=== PATIENT | female | born 1990 | race Caucasian/White ===

== ENCOUNTER 2018-12-19 13:46 | Inpatient (IN) | payer OTHER ==
[2018-12-19] MEDS ORDERED: LIDOCAINE 5% TOPICAL PATCH TP ONE (14:58)
[2018-12-19] MEDS ORDERED: METHOCARBAMOL 500 MG TABLET PO ONE (14:58)
--- NOTE | 2018-12-19 14:58 | PDOC ---
History of Present Illness - General Chief Complaint: Pain Stated Complaint: LOWER BACK PAIN RADIATE DOWN RT LEG Time Seen by Provider: 12/19/18 14:38 History Source: Patient Exam Limitations: No Limitations - History of Present Illness Initial Comments: 12/19/18 14:52 28yo F with PMH of slipped disc presenting to ED with back pain radiating down to R leg x3w. Patient has a history of slipped disc but did not have pain until 3 weeks ago. Patient does not recall any injury. The pain radiates from the buttock down the R leg, worsened when sitting and walking, better when laying down. Pain feels like an electric like pain with numbness when she sits. She states that she cannot use the bathroom due to the pain from sitting. She endorses numbness in the buttocks but not down the leg. Denies urinary retention , bowel/bladder incontinence, weakness, abdominal pain, n/v/d, headaches. LMP 2w ago. She went to [facility] 12/08 for the pain, was given a steroid shot which helped and a prescription for oxycodone? but she did not like the side effects and stopped taking it. PMD: Mounika PMH: none PSH: none Meds: none Allergies: nkda Past History - Past Medical History Allergies/Adverse Reactions: Allergies Allergy/AdvReac Type Severity Reaction Status Date / Time No Known Allergies Allergy Verified 12/19/18 13:52 Home Medications: Ambulatory Orders Ibuprofen [Ibu] 800 mg PO BID #20 tablet 12/19/18 Levothyroxine [Synthroid -] 50 mcg PO DAILY 12/19/18 Methocarbamol [Robaxin -] 750 mg PO Q8H #21 tablet 12/19/18 Asthma: Yes Cancer: No Cardiac Disorders: No COPD: No Diabetes: No HTN: No Seizures: No Thyroid Disease: No Other medical history: bulging discs - Suicide/Smoking/Psychosocial Hx Smoking Status: No Smoking History: Never smoked Have you smoked in the past 12 months: No Number of Cigarettes Smoked Daily: 0 Hx Alcohol Use: No Drug/Substance Use Hx: No Hx Substance Use Treatment: No Review of Systems - Review of Systems Constitutional: No: Chills, Fever, Weakness HEENTM: No: Symptoms Reported Respiratory: No: Symptoms reported Cardiac (ROS): No: Symptoms Reported ABD/GI: No: Symptoms Reported : No: Burning, Dysuria, Pain Musculoskeletal: Yes: See HPI, Back Pain. No: Muscle Pain, Muscle Weakness Integumentary: No: Symptoms Reported Neurological: Yes: See HPI, Numbness. No: Headache, Tingling, Weakness *Physical Exam - Vital Signs Last Vital Signs Temp Pulse Resp BP Pulse Ox 98 F 127 H 18 156/109 H 99 12/19/18 13:48 12/19/18 13:48 12/19/18 13:48 12/19/18 13:48 12/19/18 13:48 - Physical Exam General Appearance: Yes: Appropriately Dressed, Moderate Distress, Obese HEENT: positive: EOMI, STEFFI Neck: positive: Trachea midline, Supple Respiratory/Chest: positive: Lungs Clear, Normal Breath Sounds Cardiovascular: positive: Regular Rhythm, Regular Rate, S1, S2. negative: Edema , JVD, Murmur Vascular Pulses: Dorsalis-Pedis (R): 2+, Doralis-Pedis (L): 2+ Gastrointestinal/Abdominal: positive: Normal Bowel Sounds, Soft. negative: Tender, Guarding, Rebound, Tenderness Musculoskeletal: positive: Other (+SLR with R and L leg with pain felt in R buttock). negative: CVA Tenderness, Vertebral Tenderness Extremity: positive: Normal Capillary Refill, Pelvis Stable. negative: Pedal Edema, Swelling Integumentary: positive: Normal Color, Dry, Warm Neurologic: positive: internal revenue agent II-XII NML intact, Fully Oriented, Alert, Normal Mood/ Affect, Normal Response, Motor Strength 5/5, Numbness (R perineum/gluteal fold) ED Treatment Course - LABORATORY CBC & Chemistry Diagram: 12/19/18 17:30 12/19/18 17:30 Medical Decision Making - Medical Decision Making 12/19/18 15:11 28yo F with PMH of slipped disc presenting to ED with back pain radiating down to R leg x3w. Patient has a history of slipped disc but did not have pain until 3 weeks ago. Patient does not recall any injury. The pain radiates from the buttock down the R leg, worsened when sitting and walking, better when laying down. Pain feels like an electric like pain with numbness when she sits. She states that she cannot use the bathroom due to the pain from sitting. Denies urinary retention, bowel/bladder incontinence, weakness, abdominal pain, n/v/d, headaches. LMP 2w ago. She went to [facility] 12/08 for the pain, was given a steroid shot which helped and a prescription for oxycodone? but she did not like the side effects and stopped taking it. Vitals: tachycardic, hypertensive PE: positive R and L SLR. strength 5/5. no midline spinal tenderness. no abdominal tenderness. decreased sensation R perineum Likely has sciatica from slipped disc. Triage note states difficulty with urination however patient states that she has no problem with urinating, it is just painful for her to sit down. Concern for cauda equina or cord compression with R sided perineal numbness. will order MRI will order UA, Upt. Lidoderm patch, robaxin 1g. toradol once is negative. XR lumbar spine to r/o fractures. 12/19/18 15:37 UA positive for infection. Will treat with Keflex. negative test, will order 60mg IM toradol. POCUS post void: <100mL performed by Dr. Beckham. 12/19/18 19:35 Xray L spine: no fractures or bony deformities MRI: large central and bilateral disc herniation with disc extrusion at L5-S1 with marked mass effect on the sac. Dr. Nihcols consulted and saw patient. Recommended admission for surgery due to patient having progressively worsening symptoms. admission labs, ekg and cxr ordered. 12/19/18 20:05 ekg: nsr with pvc at 90bpm. qrs 84, pr 126, qtc 496. labs pending. accepted by hospitalist. *DC/Admit/Observation/Transfer Diagnosis at time of Disposition: Herniated lumbar intervertebral disc Sciatica Qualifiers: Laterality: right Qualified Code(s): M54.31 - Sciatica, right side - Discharge Dispostion Condition at time of disposition: Good Decision to Admit order: Yes - Prescriptions Prescriptions: Ibuprofen [Ibu] 800 mg PO BID #20 tablet Methocarbamol [Robaxin -] 750 mg PO Q8H #21 tablet - Referrals Referrals: Lilia Ribera MD [Primary Care Provider] - Felice Nichols MD, FAANS [Staff Physician] - - Patient Instructions - Post Discharge Activity
[2018-12-19] MEDS ORDERED: LIDOCAINE 5% TOPICAL PATCH ONE (15:04)
[2018-12-19] MEDS ORDERED: METHOCARBAMOL 500 MG TABLET ONE (15:04)
[2018-12-19 15:27] LABS: EPI CELLS 21.2 /HPF (0-5/HPF); HYALINE CASTS 75 /lpf (0-8); PH,URINE 5.5 (5.0-8.0); URINE APPEARANCE TURBID; URINE BACTERIA 3003.9 /hpf (NEGATIVE); URINE BILIRUBIN NEGATIVE (NEGATIVE); URINE COLOR YELLOW; URINE GLUCOSE (UA) NEGATIVE (NEGATIVE); URINE KETONE TRACE (NEGATIVE); URINE LEUK ESTERASE 2+ (NEGATIVE); URINE NITRITE NEGATIVE (NEGATIVE); URINE PROTEIN NEGATIVE (NEGATIVE); URINE UROBILINOGEN 0.2 mg/dL (0.2-1.0); URINE WBC 133 /hpf (0-5)
--- NOTE | 2018-12-19 15:28 | PDOC ---
Documentation entered by Zully Paredes SCRIBE, acting as scribe for Catrachita Becerril DO. Catrachita Becerril DO: This documentation has been prepared by the Reggie guardado Sammi, SCRIBE, under my direction and personally reviewed by me in its entirety. I confirm that the documentation accurately reflects all work, treatment, procedures, and medical decision making performed by me. Attending Attestation - Resident Resident Name: LuarenSolange - ED Attending Attestation I have performed the following: I have examined & evaluated the patient, The case was reviewed & discussed with the resident, I agree w/resident's findings & plan, Exceptions are as noted - HPI HPI: 12/19/18 15:19 The patient is a 28 year old female, with a significant PMH pf a slipped disc, who presents to the emergency department for evaluation of 3 weeks of back pain with radiation down right lower extremity. Denies injury or trauma. She reports the pain is exacerbated when flexed at the hips. She also notes numbness to the right buttox. The patient denies chest pain, shortness of breath, headache and dizziness. Denies fever, chills, nausea, vomiting, diarrhea and constipation. Denies dysuria, frequency, urgency and hematuria. - Physicial Exam PE: 12/19/18 15:20 GENERAL: Awake, alert, and fully oriented, in no acute distress NECK: Normal ROM, supple, no lymphadenopathy, JVD, or masses LUNGS: Breath sounds equal, clear to auscultation bilaterally. No wheezes, and no crackles HEART: (+)tachycardic. normal S1 and S2, no murmurs, rubs or gallops BACK: No midline C/T/L spine tenderness. ABDOMEN: Soft, nontender, normoactive bowel sounds. No guarding, no rebound. No masses EXTREMITIES: (+)right peroneum loss of sensation. Normal range of motion, no edema. No clubbing or cyanosis. No cords, erythema, or tenderness NEUROLOGICAL: Cranial nerves II through XII grossly intact. Normal speech, normal gait SKIN: Warm, Dry, normal turgor, no rashes or lesions noted. - Medical Decision Making 12/19/18 15:27 I, Dr. Catrachita Kurkowski, DO, attest that this document has been prepared under my direction and personally reviewed by me in its entirety. I further attest, that it accurately reflects all work, treatment, procedures and medical decision -making performed by me. 12/19/18 15:27 a/p: 28yo female with worsening lbp with radiation down the R leg -pain with sitting on the toilet so having difficulty with urination -no loss of control of bowel or bladder -no midline low back ttp, but saddle paresthesias -no weakness in leg or paresthesias in leg -given new saddle paresthesias will need MRI lumbar spine -will send ua and ucg -will medicate for pain -discussed plan with the patient -will perform post void bladder scan 12/19/18 15:29 pt with uti, will treat with abx 12/19/18 15:35 post void on ultrasound was 35cc 12/19/18 16:25 xray back neg pending MRI 12/19/18 16:42 pt signed out to the oncoming ED physician pending MRI
[2018-12-19] MEDS ORDERED: CEPHALEXIN MONOHYDRATE 500 MG CAPSULE (UD) PO ONE (15:29)
[2018-12-19] MEDS ORDERED: KETOROLAC TROMETHAMINE 60 MG/2 ML VIAL IM ONE (15:30)
[2018-12-19] MEDS ORDERED: CEPHALEXIN MONOHYDRATE 500 MG CAPSULE (UD) ONE (16:17)
[2018-12-19] MEDS ORDERED: KETOROLAC TROMETHAMINE 30 MG/1 ML VIAL ONE (16:20)
[2018-12-19] MEDS ORDERED: KETOROLAC TROMETHAMINE 30 MG/1 ML VIAL IM ONE (16:30)
[2018-12-19] MEDS ORDERED: DEXAMETHASONE 4 MG TABLET (FP) PO ONE (16:37)
[2018-12-19] MEDS ORDERED: DEXAMETHASONE SOD PHOSPHATE 10 MG/1 ML VIAL ONE (16:45)
[2018-12-19 19:41] LABS: BASO % 0.5 % (0-2.0); EOS % 0.4 % (0-4.5); HEMOGLOBIN 14.5 GM/dL (10.7-15.3); LYMPH % 14.9 % (8-40); MCH 29.5 pg (25.7-33.7); MCHC 33.8 g/dl (32.0-36.0); MEAN CELL VOLUME 87.3 fl (80-96); MEAN PLT VOLUME 8.5 fl (7.5-11.1); MONO % 2.4 % (3.8-10.2); NEUT % 81.8 % (42.8-82.8); PLATELET COUNT 294 K/MM3 (134-434); RBC 4.93 M/mm3 (3.60-5.2); RDW 13.5 % (11.6-15.6); WHITE BLOOD COUNT 10.4 K/mm3 (4.0-10.0)
[2018-12-19 20:03] LABS: INR 1.18 (0.83-1.09)
[2018-12-19 20:07] LABS: ALBUMIN 4.8 g/dl (3.4-5.0); BLOOD UREA NITROGEN 10.2 mg/dL (7-18); CREATININE 0.9 mg/dL (0.55-1.3); POTASSIUM 4.2 mmol/L (3.5-5.1); TOT PROT 8.6 g/dl (6.4-8.2)
--- NOTE | 2018-12-19 20:35 | HP ---
CHIEF COMPLAINT: Back Pain PCP: Jerod HISTORY OF PRESENT ILLNESS: 28yo F with PMHx of Hypothryroidism (diagnosed in November) Borderline Personality Disorder, and a slipped disc presenting to ED with back pain radiating down to R leg x3w. Patient has a history of slipped disc but did not have pain until 3 weeks ago. Patient does not recall any injury. The pain radiates from the buttock down the R leg, worsened when sitting and walking, better when laying down. Pain feels like an electric like pain with numbness when she sits. She states that she cannot use the bathroom due to the pain from sitting. She endorses numbness in the buttocks but not down the leg. Denies urinary retention, bowel/bladder incontinence, weakness, abdominal pain, n/v/d, headaches. LMP 2w ago. She went to [facility] for the pain, was given a steroid shot which helped and a prescription for oxycodone? but she did not like the side effects and flushed it down the toilet. ER course was notable for: (1) Toradol 60mg IM (2) Lidoderm Patch (3) Keflex 500mg-UTI (4) Robaxin 1000mg PO (5) Decadron 10mg PO (6) MRI Spine-Large central and bilateral disc herniation with disc extrusion at L5-S1 with marked mass effect on the sac and just to suggest reaches the S1 roots. (7) Neurosurgery Consult-Dr. Nichols saw patient and recommended Surgery Recent Travel: Denies PAST MEDICAL HISTORY: Hypothyroidism, Borderline Personality Disorder PAST SURGICAL HISTORY: Denies Social History: Smoking: Smoked when she was a teenager for a short time. 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 Family History: Mother: HTN, AFIB Great Aunts: Thyroid Issues Father-GERD Grandfather: Prostate Cancer, DM Grandmother: Breast Cancer Allergies: No Known Allergies Allergy (Verified 12/19/18 13:52) HOME MEDICATIONS: Home Medications Medication Instructions Recorded Ibuprofen [Ibu] 800 mg PO BID #20 tablet 12/19/18 Levothyroxine [Synthroid -] 50 mcg PO DAILY 12/19/18 Methocarbamol [Robaxin -] 750 mg PO Q8H #21 tablet 12/19/18 REVIEW OF SYSTEMS Constitutional: No: Chills, Fever, Weakness HEENTM: No: Symptoms Reported Respiratory: No: Symptoms reported Cardiac (ROS): No: Symptoms Reported ABD/GI: No: Symptoms Reported : No: Burning, Dysuria, Pain Musculoskeletal: Yes: See HPI, Back Pain. No: Muscle Pain, Muscle Weakness Integumentary: No: Symptoms Reported Neurological: Yes: See HPI, Numbness. No: Headache, Tingling, Weakness PHYSICAL EXAMINATION General Appearance: Yes: Appropriately Dressed, Moderate Distress, Obese HEENT: positive: EOMI, STEFFI Neck: positive: Trachea midline, Supple Respiratory/Chest: positive: Lungs Clear, Normal Breath Sounds Cardiovascular: positive: Regular Rhythm, Regular Rate, S1, S2. negative: Edema , JVD, Murmur Vascular Pulses: Dorsalis-Pedis (R): 2+, Doralis-Pedis (L): 2+ Gastrointestinal/Abdominal: positive: Normal Bowel Sounds, Soft. negative: Tender, Guarding, Rebound, Tenderness Musculoskeletal: positive: Other (+SLR with R and L leg with pain felt in R buttock). negative: CVA Tenderness, Vertebral Tenderness Extremity: positive: Normal Capillary Refill, Pelvis Stable. negative: Pedal Edema, Swelling Integumentary: positive: Normal Color, Dry, Warm Neurologic: positive: exchange consultant II-XII NML intact, Fully Oriented, Alert, Normal Mood/ Affect, Normal Response, Motor Strength 5/5, Numbness (R perineum/gluteal fold) Vital Signs - 24 hr 12/19/18 13:48 Temperature 98 F Pulse Rate 127 H Respiratory 18 Rate Blood Pressure 156/109 H O2 Sat by Pulse 99 Oximetry (%) Laboratory Results - last 24 hr 12/19/18 12/19/18 12/19/18 13:00 15:15 17:30 WBC RBC Hgb Hct MCV MCH MCHC RDW Plt Count MPV Absolute Neuts (auto) Neutrophils % Lymphocytes % Monocytes % Eosinophils % Basophils % Nucleated RBC % PT with INR INR PTT (Actin FS) 37.9 H Sodium Potassium Chloride Carbon Dioxide Anion Gap BUN Creatinine Est GFR (CKD-EPI)AfAm Est GFR (CKD-EPI)NonAf Random Glucose Calcium Total Bilirubin AST ALT Alkaline Phosphatase Total Protein Albumin Urine Color Yellow Urine Appearance Turbid Urine pH 5.5 Ur Specific [place] 1.023 Urine Protein Negative Urine Glucose (UA) Negative Urine Ketones Trace H Urine Blood Negative Urine Nitrite Negative Urine Bilirubin Negative Urine Urobilinogen 0.2 Ur Leukocyte Esterase 2+ H Urine WBC (Auto) 133 Urine Casts (Auto) 75 U Epithel Cells (Auto) 21.2 Urine Bacteria (Auto) 3003.9 Urine HCG, Qual Negative 12/19/18 12/19/18 12/19/18 17:30 17:30 17:30 WBC 10.4 H RBC 4.93 Hgb 14.5 Hct 43.0 MCV 87.3 MCH 29.5 MCHC 33.8 RDW 13.5 Plt Count 294 MPV 8.5 Absolute Neuts (auto) 8.5 H Neutrophils % 81.8 D Lymphocytes % 14.9 D Monocytes % 2.4 L Eosinophils % 0.4 Basophils % 0.5 Nucleated RBC % 0 PT with INR 14.00 H INR 1.18 H PTT (Actin FS) Sodium 138 Potassium 4.2 Chloride 105 Carbon Dioxide 26 Anion Gap 6 L BUN 10.2 Creatinine 0.9 Est GFR (CKD-EPI)AfAm 99.44 Est GFR (CKD-EPI)NonAf 85.80 Random Glucose 99 Calcium 10.0 Total Bilirubin 1.0 AST 34 ALT 49 Alkaline Phosphatase 100 Total Protein 8.6 H Albumin 4.8 Urine Color Urine Appearance Urine pH Ur Specific [place] Urine Protein Urine Glucose (UA) Urine Ketones Urine Blood Urine Nitrite Urine Bilirubin Urine Urobilinogen Ur Leukocyte Esterase Urine WBC (Auto) Urine Casts (Auto) U Epithel Cells (Auto) Urine Bacteria (Auto) Urine HCG, Qual ASSESSMENT/PLAN: 28yo F with PMHx of Hypothryroidism, Borderline Personality Disorder, and a slipped disc. Admitted for back pain, and positive UA. Bilateral Disc herniation with disc extrusion at L5-S1 -Large central and bilateral disc herniation with disc extrusion at L5-S1 with marked mass effect on the sac and just to suggest reaches the S1 roots. -The pain radiates from the buttock down the R leg, worsened when sitting and walking, better when laying down. Pain feels like an electric like pain with numbness when she sits -Neurosurgery Consulted- Dr. Nichols -Pain Meds - Ibuprofen 800mg PO Q8H PRN, - Robaxin 500mg PO Q8H Uncomplicated UTI -UA- Positive Leuk -WBC 10.4 -Urine Culture, taken after ABX given in ER -Keflex 500mg BID for 3 days (first dose given in the ER) Hypothyroidism -Continue Hm dose of Synthroid-50mg PO AM Borderline Personality Disorder -Does not take any medication FEN -PO intake adequate -Replenish PRN -Regular Diet Prophylaxis -DVT -OOB as tolerated -Bilateral SCDs Dispo -Inpatient -Full Code Visit type - Emergency Visit Emergency Visit: Yes ED Registration Date: 12/19/18 Care time: The patient presented to the Emergency Department on the above date and was hospitalized for further evaluation of their emergent condition. - New Patient This patient is new to me today: Yes Date on this admission: 12/20/18 - Critical Care Critical Care patient: No
[2018-12-19] MEDS ORDERED: ACETAMINOPHEN 325 MG TABLET (FP) PO PRN (21:04)
[2018-12-19] MEDS ORDERED: LIDOCAINE PATCH REMOVAL MC SCH (22:00)
[2018-12-19] MEDS: METHOCARBAMOL 500 MG TABLET PO SCH (22:16)
[2018-12-20 03:46] LABS: URINE RBC 6 /hpf (0-4)
[2018-12-20 03:47] LABS: URINE CRYSTALS CA OXALATE /hpf
[2018-12-20] MEDS: LEVOTHYROXINE NA 50 MCG TABLET (FP) PO SCH (06:08)
[2018-12-20] MEDS: METHOCARBAMOL 500 MG TABLET PO SCH ×3 (06:08→22:16)
[2018-12-20 07:15] LABS: HEMATOCRIT 39.4 % (32.4-45.2); HEMOGLOBIN 13.6 GM/dL (10.7-15.3); MCH 30.1 pg (25.7-33.7); MCHC 34.5 g/dl (32.0-36.0); MEAN CELL VOLUME 87.1 fl (80-96); MEAN PLT VOLUME 8.4 fl (7.5-11.1); PLATELET COUNT 299 K/MM3 (134-434); RBC 4.53 M/mm3 (3.60-5.2); RDW 13.4 % (11.6-15.6)
[2018-12-20 07:50] LABS: ALBUMIN 4.3 g/dl (3.4-5.0); BLOOD UREA NITROGEN 11.6 mg/dL (7-18); CALCIUM 9.8 mg/dL (8.5-10.1); CREATININE 0.9 mg/dL (0.55-1.3); MAGNESIUM 2.1 mg/dL (1.8-2.4); TOT PROT 8.1 g/dl (6.4-8.2)
[2018-12-20] MEDS: IBUPROFEN 400 MG TABLET (FP) PO PRN (09:21)
[2018-12-20] MEDS: CEPHALEXIN MONOHYDRATE 500 MG CAPSULE (UD) PO SCH ×2 (09:21→22:17)
--- NOTE | 2018-12-20 14:20 | EKG ---
Test Reason : Blood Pressure : / mmHG Vent. Rate : 090 BPM Atrial Rate : 090 BPM P-R Int : 126 ms QRS Dur : 084 ms QT Int : 406 ms P-R-T Axes : 047 040 020 degrees QTc Int : 496 ms SINUS RHYTHM WITH OCCASIONAL PREMATURE VENTRICULAR COMPLEXES AND PREMATURE ATRIAL COMPLEXES NONSPECIFIC T WAVE ABNORMALITY ABNORMAL ECG NO PREVIOUS ECGS AVAILABLE Confirmed by MD Jaxson, Judd ([id number]) on 12/20/2018 2:20:03 PM Referred By: Confirmed By:Judd Puri MD
--- NOTE | 2018-12-20 19:06 | CONSULT ---
Consult - text type - Consultation Consultation Note: NEUROSURGERY CONSULTATION Tonie Valenzuela is a 28year old Latin female who has achief complaint of acute exacerbation of chronic back pain who presented to the [facility] ER for evaluation on Wednesday, December 19, 2018. The patient relates a several year history of low back pain and being told of a "slipped disc." She was advised to lose weight and has been through several courses of conservative management indicating that when she gets a paroxysm of pain, she has learned how to "work it out." She has been in her relative state of good health until three weeks ago when she developed a severe progression of her chronic pain which far exceeded any prior episodes and did not respond to her usual efforts. Indeed, despite all efforts, her pain progressed. She was seen at [facility] for this pain and was discharged without imaging. She was given an injection and oral medications including steroids. 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 The patient describes a five day history of difficulty emptying her bladder and having to force out her urine. The patient has aggravation of back pain with vibration and jostling such as riding in a car over a bumpy road, pot holes or rail road tracks. The patient has aggravation of symptoms associated with Valsalvas maneuver. The patient walks with a markedly antalgic gait. MRI Lumbar demonstrates Lumbar degenerative spondylosis at L5S1 where an extremely large disc herniation completely fills the spinal canal. The associated endplates have Modic changes suggestive of instability. The patient describes severe limitations of activities of daily living and a poor quality of life. I described the potential role of injections, bracing, and Physical Therapy as well as medical management in detail. Given the large disc herniation and clinical history consistent with instability, I am concerned that delay in decompression and stabilization may make further conservative management a suboptimal treatment plan. The patient was able to void while in the ER and had a post void residual of 35 cc on bladder scan. After review of her symptoms and imaging, the patient would likely benefit from decompression and stabilization in the Lumbar spine. I described the risks, benefits and alternativesof Lumbar 5 - Sacral 1 decompression with interbody cage and pedicle screw fusion in great detail. I explained that the risks included, but were not limited to: , coma, paralysis, bleeding, infection, CSF leak possibly requiring spinal drainage or additional surgery, failure to fuse, failure to improve, instrumentation migration/malposition/malfunction and the need for additional surgery. I offered the patient the option to seek another opinion or another surgeon. All questions were answered. Informed consent was obtained. I made a series of illustrations to outline the anatomy, pathology, surgical approachesand potential complications. The patient understood this information and asked intelligent questions. The patient asks that we proceed with Cervical surgery as described. - Surgery scheduled as a first case on Friday, December 21, 2018
--- NOTE | 2018-12-20 21:02 | PN ---
Progress Note, Physician Chief Complaint: low back pain, History of Present Illness: pt with h/o intermittent lower back pain worse for past 3 weeks , without any recent fall , no trauma, progressively worse, and pain radiating to R thigh, and associated with one week h/o R thigh numbness, and difficulty urinating , and moving her bowel, \ today doing little better able to get out of bed , and walk a little , denies dysuria , no fever, no chills, prior to dc had urinary frequency, associated with difficulty in passing urine, no abnormal bleeding tendencies, no raection to any meds - Current Medication List Current Medications: Active Medications Cephalexin HCl (Keflex -) 500 mg PO BID [facility] Stop: 12/22/18 10:01 Last Admin: 12/20/18 09:21 Dose: 500 mg Ibuprofen (Motrin -) 800 mg PO Q8H PRN PRN Reason: FEVER Last Admin: 12/20/18 09:21 Dose: 800 mg Levothyroxine Sodium (Synthroid -) 50 mcg PO AM [facility] Last Admin: 12/20/18 06:08 Dose: 50 mcg Methocarbamol (Robaxin -) 500 mg PO TID [facility] Last Admin: 12/20/18 14:03 Dose: 500 mg - Objective Vital Signs: Vital Signs Temperature 98.2 F 12/20/18 17:37 Pulse Rate 91 H 12/20/18 17:37 Respiratory Rate 20 12/20/18 17:37 Blood Pressure 128/60 12/20/18 17:37 O2 Sat by Pulse Oximetry (%) 96 12/20/18 09:00 Constitutional: Yes: Well Nourished, No Distress, Calm Eyes: Yes: WNL, EOM Intact HENT: Yes: WNL, Other Neck: Yes: WNL, Supple Cardiovascular: Yes: Regular Rate and Rhythm Respiratory: Yes: Regular, CTA Bilaterally Gastrointestinal: Yes: WNL, Normal Bowel Sounds, Soft, Tenderness, Rebound ( negative) Extremities: Yes: WNL Edema: No Neurological: Yes: WNL ...Motor Strength: WNL Psychiatric: Yes: WNL Additional Findings/Remarks: Back , STR pos on jake R side , painful flexion and extention, refllexes diminished lower ext , knee and ankle jerk, Labs: CBC, BMP 12/20/18 06:20 12/20/18 06:20 INR, PTT INR 1.18 (0.83-1.09) H 12/19/18 17:30 - ....Imaging MRI: Report Reviewed EKG: Report Reviewed (nsr at 90 bpm , occasional pvcs, non specific T wave changes,), Image Reviewed Problem List - Problems (1) Herniated lumbar intervertebral disc Code(s): M51.26 - OTHER INTERVERTEBRAL DISC DISPLACEMENT, LUMBAR REGION (2) Sciatica Code(s): M54.30 - SCIATICA, UNSPECIFIED SIDE Qualifiers: Laterality: right Qualified Code(s): M54.31 - Sciatica, right side Assessment/Plan PRE op clearance, 28yo F with PMHx of Hypothryroidism, Borderline Personality Disorder, and a slipped disc. Admitted for back pain, and positive UA. severe low back , with difficulty urinary and moving bowel, Bilateral Disc herniation with disc extrusion at L5-S1 -Large central and bilateral disc herniation with disc extrusion at L5-S1 with marked mass effect on the sac and just to suggest reaches the S1 roots. -appreciated Neurosurgery Consulted- Dr. Nichols, pt is undergoing spinal surgery, medically stable for procedure, pt is on nsaids ,discussed with neurosurgery and her risks of demage from quada equina is higher than bleeding from Ibuprofen if not operated timely, which if does happen can be managed perioperatively, with transfusion of platelets if needed, -Pain Meds - Ibuprofen 800mg PO Q8H PRN, - Robaxin 500mg PO Q8H Uncomplicated UTI -UA- Positive Leuk -Urine Culture report pending, , taken after ABX given in ER -Keflex 500mg BID for 3 days (first dose given in the ER) Hypothyroidism -Continue Hm dose of Synthroid-50mg PO AM Prophylaxis -DVT -OOB as tolerated -Bilateral SCDs
[2018-12-20] MEDS ORDERED: CHLORHEXIDINE GLUCONATE 4% CLEANSER FOR DECOLONIZATION TP SCH (22:00)
[2018-12-20] MEDS: DEXTROSE 5%-0.45% SALINE 1,000 ML IV SCH (22:17)
[2018-12-21] MEDS: METHOCARBAMOL 500 MG TABLET PO SCH ×3 (06:45→21:35)
[2018-12-21] MEDS: LEVOTHYROXINE NA 50 MCG TABLET (FP) PO SCH ×2 (06:45→08:59)
[2018-12-21] MEDS: IBUPROFEN 400 MG TABLET (FP) PO PRN (08:57)
[2018-12-21 09:03] LABS: ALBUMIN 3.9 g/dl (3.4-5.0); BILIRUBIN,TOTAL 0.6 mg/dL (0.2-1); BLOOD UREA NITROGEN 13.7 mg/dL (7-18); CALCIUM 8.9 mg/dL (8.5-10.1); CREATININE 0.9 mg/dL (0.55-1.3); POTASSIUM 4.1 mmol/L (3.5-5.1); TOT PROT 6.8 g/dl (6.4-8.2)
[2018-12-21 09:04] LABS: BASO % 0.6 % (0-2.0); EOS % 0.7 % (0-4.5); HEMATOCRIT 38.1 % (32.4-45.2); HEMOGLOBIN 12.9 GM/dL (10.7-15.3); LYMPH % 32.5 % (8-40); MCH 29.8 pg (25.7-33.7); MCHC 33.8 g/dl (32.0-36.0); MEAN CELL VOLUME 88.2 fl (80-96); MEAN PLT VOLUME 8.4 fl (7.5-11.1); MONO % 6.2 % (3.8-10.2); PLATELET COUNT 231 K/MM3 (134-434); RBC 4.32 M/mm3 (3.60-5.2); RDW 13.6 % (11.6-15.6); WHITE BLOOD COUNT 11.2 K/mm3 (4.0-10.0)
[2018-12-21] MEDS: CEPHALEXIN MONOHYDRATE 500 MG CAPSULE (UD) PO SCH ×2 (10:29→21:35)
--- NOTE | 2018-12-21 11:41 | PN ---
Progress Note (short form) - Note Progress Note: Patient stable. Will postpone surgery to AM due to lack of OR availability.
--- NOTE | 2018-12-21 18:29 | PN ---
Progress Note (short form) - Note Progress Note: No new change her surgery is postponed due to unavailability of OR her urine is less then [id number] colonies and no need for abx vs stable heent lungs clear ext no edema ap spinal diseae pt is going to have surgery am
[2018-12-21] MEDS: DEXTROSE 5%-0.45% SALINE 1,000 ML IV SCH (21:35)
[2018-12-22] MEDS: METHOCARBAMOL 500 MG TABLET PO SCH ×3 (06:26→22:15)
[2018-12-22] MEDS: LEVOTHYROXINE NA 50 MCG TABLET (FP) PO SCH (06:26)
--- NOTE | 2018-12-22 09:21 | PN ---
Progress Note (short form) - Note Progress Note: admitted for acute lower back pain and urinary hesitancy with significant herniated disc CBC, BMP 12/21/18 07:06 12/21/18 07:06 Vital Signs Period Temp Pulse Resp BP Sys/Villalba Pulse Ox Last 24 Hr 98.1 F-98.6 F 69-91 18-20 114-132/67-80 98 s1s2 rrr lungs cta abd soft non tender no edema awake alert oriented x3 awaiting lumbar surgery today on keflex for bacteriuria no medical contraindication to proposed surgery hypothyroidism check tsh
[2018-12-22] MEDS: CEPHALEXIN MONOHYDRATE 500 MG CAPSULE (UD) PO SCH (10:40)
[2018-12-22] MEDS ORDERED: THROMBIN (BOVINE) 20,000 UNIT VIAL TP ONE (12:34)
[2018-12-22] MEDS ORDERED: VANCOMYCIN 1,000 MG VIAL (RESTRICTED TO ID ONLY) ONE ×2 (12:35→13:23)
[2018-12-22] MEDS ORDERED: GENTAMICIN SO4 80 MG/2 ML VIAL ONE (12:37)
[2018-12-22] MEDS ORDERED: LIDOCAINE HCL 1% EPINEPHRINE 1:200,000 30 ML VIAL (PF) ONE (12:37)
[2018-12-22] MEDS ORDERED: MIDAZOLAM HCL 2 MG/2 ML SINGLE DOSE VIAL ONE (12:48)
[2018-12-22] MEDS ORDERED: LIDOCAINE 1%-EPI 1:100,000 30 ML MDV IJ ONE (12:53)
[2018-12-22] MEDS ORDERED: PROPOFOL 20 ML ONE (13:21)
[2018-12-22] MEDS ORDERED: fentaNYL CITRATE 250 MCG/5 ML VIAL ONE (13:22)
[2018-12-22] MEDS ORDERED: LIDOCAINE HCL/PF 2% SDV 5ML VIAL ONE (13:23)
[2018-12-22] MEDS ORDERED: ceFAZolin SODIUM 1 GM VIAL ONE ×3 (13:23→20:35)
[2018-12-22] MEDS ORDERED: DEXAMETHASONE SOD PHOSPHATE 4 MG/1 ML VIAL ONE (13:23)
[2018-12-22] MEDS ORDERED: KETOROLAC TROMETHAMINE 30 MG/1 ML VIAL ONE (13:23)
[2018-12-22] MEDS ORDERED: ONDANSETRON 4 MG/2 ML VIAL ONE (13:23)
[2018-12-22] MEDS ORDERED: ROCURONIUM BROMIDE 50 MG/5 ML SYRINGE ONE ×2 (13:24)
[2018-12-22] MEDS ORDERED: BENZOIN TINCTURE SWABSTICK TP ONE (13:30)
[2018-12-22] MEDS ORDERED: MORPHINE 5 MG/10 ML AMP - FOR COMPOUNDING USE ONLY ONE (13:36)
[2018-12-22] MEDS ORDERED: VANCOMYCIN 1,000 MG VIAL (RESTRICTED TO ID ONLY) IVPB ONE (13:57)
[2018-12-22] MEDS ORDERED: ceFAZolin SODIUM 1 GM VIAL IVPB ONE (13:57)
[2018-12-22] MEDS ORDERED: BACITRACIN 50,000 UNITS VIAL TP ONE (15:12)
[2018-12-22] MEDS ORDERED: HYDROGEN PEROXIDE 473 ML PO ONE (15:13)
[2018-12-22] MEDS ORDERED: GENTAMICIN 80MG PREMIX BAG IVPB ONE (15:13)
[2018-12-22] MEDS ORDERED: THROMBIN (BOVINE) 5,000 UNIT VIAL TP ONE (15:17)
[2018-12-22] MEDS ORDERED: BUPIVACAINE LIPOSOME/PF (EXPAREL) 266 MG/20 ML VIAL ONE (16:15)
[2018-12-22] MEDS ORDERED: BUPIVACAINE HCL/PF 0.5% (5 MG/ML) 30 ML VIAL IJ ONE (16:18)
[2018-12-22] MEDS ORDERED: GLYCOPYRROLATE 0.2 MG/1 ML VIAL ONE ×2 (16:29)
[2018-12-22] MEDS ORDERED: NEOSTIGMINE METHYLSULFATE 0.5 MG/1 ML - 10 ML MDV ONE (16:29)
[2018-12-22] MEDS ORDERED: diphenhydrAMINE HCL 25 MG CAPSULE (FP) PO PRN ×2 (16:31→20:31)
[2018-12-22] MEDS ORDERED: oxyCODONE HCL 5 MG TABLET PO PRN ×2 (16:31)
[2018-12-22] MEDS ORDERED: MORPHINE SULFATE 2 MG/ML VIAL IVPUSH PRN (16:31)
[2018-12-22] MEDS ORDERED: ONDANSETRON 4 MG/2 ML VIAL IVPUSH PRN ×3 (16:31→20:31)
[2018-12-22] MEDS ORDERED: LACTATED RINGERS SOLUTION 1,000 ML/1,000 ML INFUS.BAG IV SCH (16:45)
--- NOTE | 2018-12-22 17:15 | OP ---
Operative Note - Note: Operative Date: 12/22/18 Pre-Operative Diagnosis: L5 herniated disc, lumbar instability Operation: 1. L5-S1 transpedicular approach. 2. L5S1 Laminectomy for disc herniation. 3. Microdissection. 4. Interbody cage L5S1. 5. Interbody and Posterior/Lateral arthrodesis L5S1. 6. L5S1 Posterior instrumentation. 7. Local autograft. 8. Bilateral soft tissue advancement flaps (50cm2) Findings: as dictated Implants: as dictated Post-Operative Diagnosis: Same as Pre-op Surgeon: Felice Nichols Label Cutter: Dipti Heredia Anesthesiologist/ROCKET MOTOR MECHANIC: Ag Majano Anesthesia: General, Spinal (DURAMORPH), Local (Exparel w/ .5% Marcaine injected at end of case) Specimens Removed: L5 disc Estimated Blood Loss (mls): 200 (ml) Drains & Tubes with Location: SONNY in place Drains, Volume Out (mls): 400 (ml clear urine) Fluid Volume Replaced (mls): 1,800 (ml LR) Operative Report Dictated: Yes
[2018-12-22] MEDS ORDERED: PROMETHAZINE HCL 25 MG/1 ML VIAL IVPUSH PRN (17:21)
[2018-12-22] MEDS ORDERED: CEFAZOLIN 1 GM/D5W 1 GM/50 ML BAG IVPB SCH ×2 (18:00→20:00)
[2018-12-22] MEDS ORDERED: ACETAMINOPHEN 1000 MG/100 ML VIAL (NON FORMULARY) IVPB ONE ×2 (18:00)
[2018-12-22] MEDS ORDERED: DEXTROSE 5%-WATER - 50 ML IVPB ONE (20:36)
[2018-12-22] MEDS: CEFAZOLIN 1 GM in DEXTROSE 5%-WATER - 50 ML IVPB SCH (20:41)
[2018-12-22] MEDS: LACTATED RINGERS SOLUTION 1,000 ML/1,000 ML INFUS.BAG IV SCH (21:00)
[2018-12-22] MEDS ORDERED: DOCUSATE SODIUM 100 MG CAPSULE (FP) PO SCH (22:00)
[2018-12-22] MEDS ORDERED: HEPARIN NA (PORCINE) 5,000 UNITS/ML 1ML VIAL SQ SCH (22:00)
[2018-12-22] MEDS: DOCUSATE SODIUM 100 MG CAPSULE (FP) PO SCH (22:14)
[2018-12-22] MEDS: ACETAMINOPHEN 500 MG TABLET (FP) PO SCH (23:55)
[2018-12-23] MEDS ORDERED: DEXTROSE 5%-WATER - 50 ML IVPB ONE ×2 (04:14→12:14)
[2018-12-23] MEDS ORDERED: ceFAZolin SODIUM 1 GM VIAL ONE ×2 (04:14→12:14)
[2018-12-23] MEDS: LACTATED RINGERS SOLUTION 1,000 ML/1,000 ML INFUS.BAG IV SCH ×2 (04:20→22:10)
[2018-12-23] MEDS: CEFAZOLIN 1 GM in DEXTROSE 5%-WATER - 50 ML IVPB SCH ×2 (04:20→12:54)
[2018-12-23] MEDS: LEVOTHYROXINE NA 50 MCG TABLET (FP) PO SCH (06:17)
[2018-12-23] MEDS: ACETAMINOPHEN 500 MG TABLET (FP) PO SCH ×2 (06:18→12:54)
[2018-12-23] MEDS: DOCUSATE SODIUM 100 MG CAPSULE (FP) PO SCH ×3 (06:32→22:06)
[2018-12-23] MEDS: METHOCARBAMOL 500 MG TABLET PO SCH ×3 (07:03→22:08)
[2018-12-23 07:17] LABS: HEMATOCRIT 33.5 % (32.4-45.2); HEMOGLOBIN 11.5 GM/dL (10.7-15.3); MCHC 34.4 g/dl (32.0-36.0); MEAN CELL VOLUME 87.3 fl (80-96); MEAN PLT VOLUME 8.3 fl (7.5-11.1); PLATELET COUNT 225 K/MM3 (134-434); RBC 3.83 M/mm3 (3.60-5.2); RDW 13.9 % (11.6-15.6); WHITE BLOOD COUNT 13.3 K/mm3 (4.0-10.0)
[2018-12-23] MEDS ORDERED: HYDROmorphone *PCA* 10MG/50ML DISP.SYRIN PCA SCH (08:00)
[2018-12-23 08:06] LABS: BLOOD UREA NITROGEN 9.1 mg/dL (7-18); CALCIUM 9.1 mg/dL (8.5-10.1); CREATININE 0.7 mg/dL (0.55-1.3); POTASSIUM 4.9 mmol/L (3.5-5.1)
--- NOTE | 2018-12-23 09:07 | PN ---
Progress Note (short form) - Note Progress Note: POD 1, s/p L5 discectomy, l5-s1 lumbar fusion Pt seen and examined. Reports she is feeling well this AM. Has no pain currently. Has not been oob yet. Cutler remains in place. Had 1 episode of n/v this AM after drinking "too much water". Denies any motor/sensory deficits. Denies cp/sob. Vital Signs Temp 98.1 F 12/23/18 05:43 Pulse 73 12/23/18 05:43 Resp 20 12/23/18 05:43 BP 124/78 12/23/18 05:43 Pulse Ox 99 12/22/18 21:00 Intake & Output 12/22/18 12/22/18 12/23/18 11:59 23:59 11:59 Intake Total 525 2200 1590 Output Total 1905 860 Balance 525 295 730 Intake: IV 525 2200 1250 D5-1/2Ns - 1,000 ml @ 75 525 mls/hr IV ASDIR ADDY Rx#: [id number] LACTATED RINGERS SOLUTION 1250 1,000 ml In 1,000 ml @ 125 mls/hr IV ASDIR ADDY Rx#:[id number] IVPB 100 Oral 240 Output: Drainage 55 160 Back 160 Urine 1600 700 Cutler 700 Estimated Blood Loss 250 Other: Voiding Method Toilet Indwelling Catheter Indwelling Catheter # Unmeasured Voids Void 2 CBC, BMP 12/23/18 05:30 12/23/18 05:30 Gen: awake, alert, nad Resp: Unlabored on RA Back: dressing c/d/i, drain in place with scant serosanguinous drainage in reservoir, tubing stripped. Neuro: B/L les dorsi/plantarflexion 5/5, hip flex/ext 5/5, silt in L5-S1 distribution b/l A/P: 28 y/o F w/ no significant PMHx admitted for worsening le back pain found to have large herniated lumbar disc/lumbar instability, now POD 1, s/p L5 discectomy, l5-s1 lumbar fusion. Afebrile, VSS No pain currently-received Duramorph spinal and Exparel in OR SONNY output 80ml overnight, 160ml since OR -Cutler out this AM-TOV -OOB with assistance -Regular diet -DVT prophylaxis with heparin sq 5000units tid -nv checks and vs per procotol -Monitor drain and record output -Continue ancef while drain is in place (1g q8hrs) d/w attending Dr Moser
[2018-12-23] MEDS ORDERED: FERROUS SO4 325 MG TABLET (FP) PO SCH (10:00)
[2018-12-23] MEDS ORDERED: FOLIC ACID 1 MG TABLET (FP) PO SCH (10:00)
[2018-12-23] MEDS: HEPARIN NA (PORCINE) 5,000 UNITS/ML 1ML VIAL SQ SCH ×3 (11:03→22:07)
[2018-12-23] MEDS: FERROUS SO4 325 MG TABLET (FP) PO SCH (11:03)
[2018-12-23] MEDS: FOLIC ACID 1 MG TABLET (FP) PO SCH (11:03)
--- NOTE | 2018-12-23 12:15 | PN ---
Progress Note (short form) - Note Progress Note: CBC, BMP 12/23/18 05:30 12/23/18 05:30 Vital Signs Period Temp Pulse Resp BP Sys/Villalba Pulse Ox Last 24 Hr 97.4 F-98.4 F 59-86 12-20 95-124/53-80 97-100 s1s2 rrr lungs cta abd soft non tender no edema awake alert oriented x3 denies significant pain moving legs and toes drain with blood s/p lumbar fusion POD #1 did well PT, postop f/up as per surgical team hypothyroidism-controlled
--- NOTE | 2018-12-23 15:11 | PN ---
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 POD#1, vss, aaox3, pain well controlled, no complaints. No anesthesia complications.
[2018-12-23] MEDS: DEXTROSE 5%-0.45% SALINE 1,000 ML IV SCH (22:09)
[2018-12-24] MEDS: HEPARIN NA (PORCINE) 5,000 UNITS/ML 1ML VIAL SQ SCH ×3 (06:34→22:37)
[2018-12-24] MEDS: LEVOTHYROXINE NA 50 MCG TABLET (FP) PO SCH (06:34)
[2018-12-24] MEDS: DOCUSATE SODIUM 100 MG CAPSULE (FP) PO SCH ×4 (06:35→22:37)
[2018-12-24] MEDS: METHOCARBAMOL 500 MG TABLET PO SCH ×3 (06:35→22:37)
--- NOTE | 2018-12-24 08:02 | PN ---
Progress Note (short form) - Note Progress Note: Vital Signs Period Temp Pulse Resp BP Sys/Villalba Pulse Ox Last 24 Hr 97.6 F-98.7 F 60-90 18-20 104-123/68-82 97-100 s1s2 rrr lungs cta abd soft non tender no edema awake alert oriented x3 denies significant pain, does not use INVOICE CONTROL CLERK moving legs and toes drain with blood ambulating well s/p lumbar fusion POD #2 PT, postop f/up and dc planning as per surgical team hypothyroidism-controlled if remains in hospital today, can transfer to med/surg floor
[2018-12-24] MEDS ORDERED: PT OWN MED DRAWER 7, Y5N ONE ×3 (09:38→22:15)
[2018-12-24] MEDS: FOLIC ACID 1 MG TABLET (FP) PO SCH (09:40)
[2018-12-24] MEDS: FERROUS SO4 325 MG TABLET (FP) PO SCH (09:40)
[2018-12-24] MEDS ORDERED: oxyCODONE HCL 5 MG TABLET PO PRN ×2 (11:10)
--- NOTE | 2018-12-24 11:39 | PN ---
Progress Note (short form) - Note Progress Note: Anesthesia/postop pain management follow up POD#2, aaox3, vss, feeling well, passenger agent was discontinued earlier today, pain well controlled.
--- NOTE | 2018-12-24 12:35 | SPA.POSTOP ---
- POST-OP NOTE POD #3 s/p L5-S1 PLIF No acute events since surgical procedure per RN notes. Patient resting comfortably. Pain management via prn meds. Denies n/v/f/c, CP or SOB. Last Vital Signs Temp Pulse Resp BP Pulse Ox 98 F 90 18 119/58 L 100 12/24/18 09:00 12/24/18 09:00 12/24/18 09:00 12/24/18 09:00 12/23/18 21:00 Intake & Output 12/23/18 12/24/18 12/24/18 23:59 11:59 23:59 Intake Total 1850 10 Output Total 130 40 Balance 1720 -30 Intake: IV 1500 10 LACTATED RINGERS SOLUTION 1500 1,000 ml In 1,000 ml @ 125 mls/hr IV ASDIR ADDY Rx#:[id number] Saline Lock 10 IVPB 50 Oral 300 Output: Drainage 130 40 Back 130 40 Other: Voiding Method Bedpan Bedpan # Unmeasured Voids Void 3 Bowel Movement No No Physical Exam General: No acute distress. Pulm: breathing comfortably Back: dressing is clean, drain in place with serosanguinous drainage. LE: Soft, non-tender bilat. SCD's bilat. no weakness or numbness Problem List - Problems (1) Herniated lumbar intervertebral disc Assessment/Plan: Plan -continue to monitor drain output with plans to remove tomorrow, pt doing well. -OOB/ambulate -pain control. -DVT ppx Code(s): M51.26 - OTHER INTERVERTEBRAL DISC DISPLACEMENT, LUMBAR REGION
[2018-12-24 13:08] VITALS: BMI 30.9
[2018-12-24] MEDS: DEXTROSE 5%-0.45% SALINE 1,000 ML IV SCH (22:33)
[2018-12-24] MEDS: LACTATED RINGERS SOLUTION 1,000 ML/1,000 ML INFUS.BAG IV SCH (22:36)
[2018-12-25] MEDS ORDERED: PT OWN MED DRAWER 7, Y5N ONE (05:33)
[2018-12-25] MEDS: METHOCARBAMOL 500 MG TABLET PO SCH ×2 (07:00→13:16)
[2018-12-25] MEDS: DOCUSATE SODIUM 100 MG CAPSULE (FP) PO SCH ×2 (07:01→13:14)
[2018-12-25] MEDS: HEPARIN NA (PORCINE) 5,000 UNITS/ML 1ML VIAL SQ SCH ×2 (07:01→13:14)
[2018-12-25] MEDS: LEVOTHYROXINE NA 50 MCG TABLET (FP) PO SCH (07:01)
--- NOTE | 2018-12-25 08:20 | PN ---
Progress Note (short form) - Note Progress Note: Vital Signs Period Temp Pulse Resp BP Sys/Villalba Pulse Ox Last 24 Hr 98 F-99 F 86-104 18-20 115-132/58-86 97-100 s1s2 rrr lungs cta abd soft non tender no edema awake alert oriented x3 denies significant pain,moving legs and toes drain with scant blood ambulating well s/p lumbar fusion POD #3 PT, postop f/up and dc planning as per surgical team hypothyroidism-controlled dc planning
[2018-12-25] MEDS: FOLIC ACID 1 MG TABLET (FP) PO SCH (09:58)
[2018-12-25] MEDS: FERROUS SO4 325 MG TABLET (FP) PO SCH (09:58)
[2018-12-25 13:14] VITALS: BP 121/83; PULSE 99; TEMP 98.6
--- NOTE | 2018-12-25 15:23 | PN ---
Progress Note (short form) - Note Progress Note: 28yo F s/p L5/s1 fusion, pt seen and examined at bedside. Pt states she feels well and is ready to go home. Pt denies pain or LE numbness. Vital Signs Temp 98.6 F 12/25/18 13:13 Pulse 99 H 12/25/18 13:13 Resp 18 12/25/18 13:13 BP 121/83 12/25/18 13:13 Pulse Ox 97 12/25/18 09:00 Intake & Output 12/24/18 12/25/18 12/25/18 23:59 11:59 23:59 Intake Total 650 20 Output Total 120 24 Balance 530 -4 Weight 180 lb Intake: IV 20 Saline Lock 20 Oral 650 Output: Drainage 120 24 Back 120 24 Other: Voiding Method Toilet Toilet Toilet # Unmeasured Voids Void 3 Bowel Movement No No Height 5 ft 4 in Body Mass Index (BMI) 30.9 PE: Gen: A&O x 3 Resp: breathing comfortably Back: incision is clean with no erythema or discharge. Drain in place with serosanguinous drainage. Ext: No edema, weakness or numbness. Problem List - Problems (1) Herniated lumbar intervertebral disc Assessment/Plan: Plan -Drain was removed at bedside, Pt is doing well and is cleared for discharge home. -pt should follow up with Dr. Nichols in 2-3 weeks for outpatient follow up see discharge instructions. Code(s): M51.26 - OTHER INTERVERTEBRAL DISC DISPLACEMENT, LUMBAR REGION
--- NOTE | 2018-12-25 15:42 | DS ---
Physical Examination Vital Signs: Vital Signs Temperature 98.6 F 12/25/18 13:13 Pulse Rate 99 H 12/25/18 13:13 Respiratory Rate 18 12/25/18 13:13 Blood Pressure 121/83 12/25/18 13:13 O2 Sat by Pulse Oximetry (%) 97 12/25/18 09:00 Constitutional: Yes: Well Nourished, No Distress HENT: Yes: Normocephalic Neck: Yes: Trachea Midline Cardiovascular: Yes: Regular Rate and Rhythm Respiratory: Yes: CTA Bilaterally Gastrointestinal: Yes: Normal Bowel Sounds, Soft Extremities: Yes: WNL Edema: No Peripheral Pulses WNL: Yes Wound/Incision: Yes: Dressing Dry and Intact Neurological: Yes: WNL ...Motor Strength: WNL Psychiatric: Yes: WNL Labs: CBC, BMP 12/23/18 05:30 12/23/18 05:30 Discharge Summary Reason For Visit: HERNIATION OF INTERVERTEBRAL DISC,SCIATICA, BACK Current Active Problems Herniated lumbar intervertebral disc (Acute) Sciatica (Acute) Procedures: Principal: L5 discectomy, l5-s1 lumbar fusion on 12.22.18 Hospital Course: 28 y/o F w/ hypothyroidism admitted for worsening le back pain found to have large herniated lumbar disc/lumbar instability, now POD 3, s/p L5 discectomy, l5 -s1 lumbar fusion. Condition: Good - Instructions Diet, Activity, Other Instructions: Post Operative Instructions Physical Activity Resume your normal everyday activity as tolerated. No heavy lifting or exercise until seen by your surgeon. You may walk unlimited amounts and climb stairs. You may resume driving the car when you feel safe and comfortable behind the wheel and you are no longer wearing your brace. Do not operate a vehicle while taking narcotic medication. Brace If you had back surgery, wear TLSO Brace whenever out of bed. May remove to sleep and shower. Wound Care Keep your incision clean, dry and covered at all times. Apply an occlusive dressing (Saran wrap or Tegaderm) when showering to avoid getting your incision wet. Do not submerge incision or apply ointments or creams. The trevor will be removed in the office in 10-14 days post-op. Diet There are no dietary restrictions. Eat healthy, high-fiber foods. Drink 6-8 glasses of liquid each day. This will assist in keeping your bowels regular. Pain Management You may take Tylenol or acetaminophen. Any pain prescription medication ordered should be taken as prescribed for moderate to severe pain. Avoid any ibuprofen (Motrin, Advil, Aleve, Toradol, etc) for 3 months unless otherwise discussed with your surgeon. Call Dr Christianson for any of the following: Severe pain not relieved by medication Fever of 101 or higher Excessive bleeding or drainage on dressing Inability to urinate Any chest pain or shortness of breath, seek Emergency Care. Call the office to confirm a post-operative appointment for 2-3 weeks post-op Felice Nichols MD [facility] [address] [place] [address] Disposition: HOME - Home Medications Comprehensive Discharge Medication List: Ambulatory Orders Levothyroxine [Synthroid -] 50 mcg PO DAILY 12/19/18 Docusate Sodium [Colace -] 100 mg PO TID PRN capsule 12/25/18 Methocarbamol [Robaxin -] 500 mg PO TID #15 tablet 12/25/18 Oxycodone HCl/Acetaminophen [Percocet 5-325 mg Tablet] 1 tab PO Q6H #20 tablet MDD 4 12/25/18
--- NOTE | 2018-12-25 20:20 | PATH ---
Surgical Pathology Report Patient Name: SHAYLA YORK Med. Rec. #: [id number] /Age/Gender: 1990 (Age: 28) / F Account: [id number] Location: 4 W TELEMETRY U Taken: 12/22/2018 Received: 12/23/2018 Reported: 12/25/2018 Physicians: Janice Cano M.D. Specimen(s) Received DISC L5-S1 Clinical History L5 herniated Final Diagnosis L5-S1 DISC, DISCECTOMY: FRAGMENTS OF BONE AND CARTILAGINOUS TISSUE WITH FOCAL DEGENERATIVE CHANGE. Electronically Signed Noé Stewart M.D. Gross Description Received in formalin labeled "L5-S1 disc," is a 4.5 x 4.0 x 0.7 cm aggregate of jay brown fragments of fibrocartilaginous tissue. A footwear sales representative portion is submitted in one cassette. /12/24/2018 saudi12/24/2018
--- NOTE | 2018-12-28 14:36 | SURG ---
Surgery Cafe Or Restaurant Manager Note Cafe Or Restaurant Manager: Dipti Heredia PA-C (Suzy) Date of Service: 12/22/18 Diagnosis: Large L5-S1 disc herniation with instability Procedure: 1. L5-S1 transpedicular approach 2. L5S1 Laminectomy for disc herniation 3. Microdissection 4. Interbody cage L5S1 5. Interbody and Posterior/Lateral arthrodesis L5S1 6. L5S1 Posterior instrumentation 7. Local autograft 8. Bilateral soft tissue advancement flaps (50cm2) I was present for the entirety of the operative procedure. For further detail, please refer to operative report. Visit type - Case Type Case Type: ED Admission - Emergency Emergency Visit: Yes ED Registration Date: 12/19/18 Care time: The patient presented to the Emergency Department on the above date and was hospitalized for further evaluation of their emergent condition. - New patient This patient is new to me today: Yes Date on this admission: 12/28/18 - Critical Care Critical Care patient: No
== END 2018-12-25 17:16 | disposition home or self-care (01) | DRG 304 ==
LOC: JER 13:46 → JERBED 18:59 → J8W 21:08 → JSAMEDAYSX 12-22 14:18 → J4W 12-22 20:13
PROVIDERS: ADMIT Internal Medicine; ATTEND Internal Medicine
PROC: 0SG3071 Fusion of Lumbosacral Joint with Autologous Tissue Substitute, Posterior Approach, Posterior Column, Open Approach (ICD-10-PCS; 2018-12-22)
PROC: 0SB40ZZ Excision of Lumbosacral Disc, Open Approach (ICD-10-PCS; 2018-12-22)
PROC: 01NB0ZZ Release Lumbar Nerve, Open Approach (ICD-10-PCS; 2018-12-22)
PROC: B01BZZZ Fluoroscopy of Spinal Cord (ICD-10-PCS; 2018-12-22)
PROC: 0JX70ZZ Transfer Back Subcutaneous Tissue and Fascia, Open Approach (ICD-10-PCS; 2018-12-22)
PROC: 0SG30AJ Fusion of Lumbosacral Joint with Interbody Fusion Device, Posterior Approach, Anterior Column, Open Approach (ICD-10-PCS; principal; 2018-12-22 13:00)
DX: M51.27 Other intervertebral disc displacement, lumbosacral region (principal); M53.2X7 Spinal instabilities, lumbosacral region; M54.31 Sciatica, right side; M47.817 Spondylosis without myelopathy or radiculopathy, lumbosacral region; N39.0 Urinary tract infection, site not specified; E03.9 Hypothyroidism, unspecified; F60.9 Personality disorder, unspecified; M51.26 Other intervertebral disc displacement, lumbar region
CPT/HCPCS: 36415; 72100-TC-FY; 72131-TC; 72148-TC; 76000-TC-FY; 80048; 80053; 81003; 83735; 84443; 84703; 85025; 85027; 85610; 85730; 86850; 86900; 86901; 87077; 87086; 88304-TC; 93005; 93010; 94760; 97116-GP; 97161-GP; 99283-25; J0131; J1644